=== PATIENT | female | born 1995 | race Caucasian/White ===

== ENCOUNTER 2019-07-30 14:49 | Emergency (ER) | payer SELFPAY ==
[~2019-07-30] VITALS: Ht 162.6 cm; Wt 77.8 kg
[2019-07-30 14:51] VITALS: BP 154/81
--- NOTE | 2019-07-30 14:58 | NUR ---
WAIT AT LOBBY
--- NOTE | 2019-07-30 16:21 | NUR ---
PT AMBULATED TO ER BED 10
--- NOTE | 2019-07-30 16:26 | NUR ---
24/F C/O RIGHT LOWER BACK PAIN RADIATING DOWN RIGHT LEG TO LEVEL OF KNEE X 3 DAYS. DENIES INJURY, UTI SYMPTOMS, FEVER, N/V. STATES CONSTANT PRESSURE AND MUSCLE SPASM SENSATION. PAIN WORSE WITH AMBULATION AND CHANGING POSITION FROM SITTING TO STANDING. MED HX: DENIES
[2019-07-30] MEDS ORDERED: MORPHINE SULFATE 4 MG/ML SYR IM ONE (16:40)
[2019-07-30] MEDS ORDERED: KETOROLAC 60 MG/2 ML VIAL IM ONE (16:40)
--- NOTE | 2019-07-30 17:33 | NUR ---
PT STATES PAIN SLIGHTLY DECREASED AFTER PAIN MED ADMINISTRATION.
[2019-07-30 17:36] LABS: APPEARANCE,URINE HAZY (CLEAR); BILIRUBIN,URINE NEGATIVE (NEGATIVE); BLOOD, URINE TRACE-I (NEGATIVE); COLOR,URINE YELLOW (YELLOW); LEUKOCYTE ESTERASE ,URINE TRACE (NEGATIVE); NITRITE, URINE NEGATIVE (NEGATIVE); PH,URINE 5.5 (5.0-9.0); UGLUCOSE 1+ (NEGATIVE)
[2019-07-30 18:01] LABS: RBC,URINE 0-5 /HPF (0-5); WBC,URINE 0-5 /HPF (0-5)
[2019-07-30 19:02] VITALS: BP 118/71
--- NOTE | 2019-07-30 19:02 | NUR ---
Patient discharged with v/s stable. Written and verbal after care instructions given and explained. Patient alert, oriented and verbalized understanding of instructions. Ambulatory with steady gait. All questions addressed prior to discharge. ID band removed. Patient advised to follow up with PMD. Rx of TRAMADOL, PREDNISONE given. Patient educated on indication of medication including possible reaction and side effects. Opportunity to ask questions provided and answered.
== END 2019-07-30 19:02 | disposition home or self-care (01) ==
LOC: MED 14:49
DX: M54.41 Lumbago with sciatica, right side (principal); M51.26 Other intervertebral disc displacement, lumbar region
CPT/HCPCS: 72131; 81001; 81025; 96372; 99284; J1885; J2270